=== PATIENT | male | born 1940 | race Caucasian/White ===

== ENCOUNTER 2019-01-01 14:56 | Emergency (ER) | payer OTHER, BC ==
[~2019-01-01] VITALS: Ht 172.7 cm; Wt 70.8 kg
[2019-01-01 15:04] VITALS: BP 122/38
--- NOTE | 2019-01-01 15:10 | NUR ---
BIB DAUGHTER C/O LEFT SIDE PAIN S/P FALL X TODAY. DENIES LOC, DENIES HITTING HEAD. PER DAUGHTER, PT HAS A SHUFFLING GAIT AND PT WAS TRYING TO OPEN THE DOOR CAUSING HIM TO FALL AND HITTING THE FRIDGE WITH THE PT/S L SIDE OF THE BODY. PERRLA, BRISK 3 MM. FULL CLEAR SPEECH. EQUAL PAT STRENGTH TO UPPER AND LOWER EXTREMITIES. PT PLACED ON FULL RESPIRATORY DIRECTOR. HOB UP. BED SIDE RAILS UP X1. ON LOW BED POSITION, LOCKED. ER MADE AWARE OF PT STATUS.
--- NOTE | 2019-01-01 15:25 | NUR ---
SEEN AND EXAMINED BY MERNA GUERRA WITH ORDERS AND CARRIED OUT.
[2019-01-01] MEDS ORDERED: HYDROcodone/APAP 5/325 MG 1 TAB TAB PO ONE (15:40)
[2019-01-01] MEDS ORDERED: ONDANSETRON 4 MG ODT PO ONE (15:40)
--- NOTE | 2019-01-01 15:50 | NUR ---
Blood for labwork drawn per PA ORDER . Patient tolerated well.
[2019-01-01 16:02] LABS: BASOPHILS % (AUTO) 0.5 % (0.0-2.0); EOSINOPHILS # (AUTO) 0.2 K/uL (0-0.4); HEMOGLOBIN 12.8 g/dL (12.0-18.0); LYMPHOCYTES # (AUTO) 1.9 K/uL (2.0-11.5); LYMPHOCYTES % (AUTO) 24.4 % (20.5-51.1); MEAN CORPUSCULAR HEMOGLOBIN 31 pg (27-31); MEAN CORPUSCULAR HGB CONC 34 g/dL (33-37); MEAN CORPUSCULAR VOLUME 92.8 fL (80-94); MONOCYTES # (AUTO) 0.6 K/uL (0.8-1.0); MONOCYTES % (AUTO) 8.2 % (1.7-9.3); NEUTROPHILS % (AUTO) 64.9 % (42.2-75.2); PLATELET COUNT (AUTO) 188 K/uL (140-450); RED BLOOD CELL COUNT(AUTO) 4.09 MIL/uL (4.20-6.10); RED CELL DISTRIBUTION WIDTH 13.6 % (11.6-13.7); WHITE BLOOD COUNT (AUTO) 7.7 K/uL (4.8-10.8)
[2019-01-01 16:12] LABS: ANION GAP 11.1 (8-16); CHLORIDE 105 mmol/L (98-107); GLUCOSE 93 mg/dL (74-106); POTASSIUM 4.1 mmol/L (3.5-5.1); SODIUM SERUM 140 mmol/L (136-145); UREA NITROGEN, BLOOD 17 mg/dL (7-18)
[2019-01-01 16:18] LABS: ALBUMIN 3.8 g/dL (3.4-5.0); ASPARTATE AMINOTRANSFERASE 21 U/L (15-37); TOTAL BILIRUBIN 0.5 mg/dL (0.0-1.0)
--- NOTE | 2019-01-01 16:40 | NUR ---
PT ABLE TO GIVE URINE SPECIMEN. URINE SAMPLE GIVEN TO PUBLIC RELATIONS ACCOUNT SUPERVISOR.
[2019-01-01 17:05] LABS: APPEARANCE,URINE CLEAR (CLEAR); BILIRUBIN,URINE NEGATIVE (NEGATIVE); BLOOD, URINE NEGATIVE (NEGATIVE); COLOR,URINE YELLOW (YELLOW); LEUKOCYTE ESTERASE ,URINE NEGATIVE (NEGATIVE); NITRITE, URINE NEGATIVE (NEGATIVE); UGLUCOSE NEGATIVE (NEGATIVE)
--- NOTE | 2019-01-01 17:31 | NUR ---
MERNA GUERRA AT BEDSIDE FOR PT RE EVALUATION
[2019-01-01 18:00] VITALS: BP 137/78
--- NOTE | 2019-01-01 18:00 | NUR ---
Patient discharged with v/s stable. Written and verbal after care instructions given and explained. Patient alert, oriented and verbalized understanding of instructions. Ambulatory with steady gait. All questions addressed prior to discharge. ID band removed. Patient advised to follow up with PMD. Rx of Azithromycin given. Patient educated on indication of medication including possible reaction and side effects. Opportunity to ask questions provided and answered.
== END 2019-01-01 18:00 | disposition home or self-care (01) ==
LOC: MED 14:56
DX: S20.212A Contusion of left front wall of thorax, initial encounter (principal); J18.9 Pneumonia, unspecified organism; G20 Parkinson's disease; F02.80 Dementia in other diseases classified elsewhere, unspecified severity, without behavioral disturbance, psychotic disturbance, mood disturbance, and anxiety; W18.39XA Other fall on same level, initial encounter; Y93.01 Activity, walking, marching and hiking; Y92.098 Other place in other non-institutional residence as the place of occurrence of the external cause; Y99.8 Other external cause status
CPT/HCPCS: 36415; 70450; 71250; 80053; 81003; 82550; 85025; 99284; Q0162

== ENCOUNTER 2019-01-22 10:08 | Emergency (ER) | payer OTHER, BC ==
[~2019-01-22] VITALS: Ht 172.7 cm; Wt 68.0 kg
[2019-01-22 10:10] VITALS: BP 139/64
--- NOTE | 2019-01-22 10:10 | NUR ---
PT [facility] WITH C/O ABDOMINAL PAIN X 2 WKS, WORSEN TODAY. DENIES PMH. PT AAO X4, GCS 15, ABLE TO SPEAK WITH SHORT SENTENCES DUE TO PAIN. RESPIRATIONS EVEN AND UNLABORED, BL LUNG CLEAR. SKIN WAMR/PINK/DRY, +PMSC. ABLE TO AMBULATED FROM GURNEY TO BED 02. ABDOMEN FLAT, FIRM, NON DISTENDED, ACTIVE BOWEL SOUND X4. STATED PAIN TO LLQ 10/10. PHP ENGINEER SR, BP WNL. AT BEDSIDE EVALUATING PT. WILL CONTINUE TO MONITOR
[2019-01-22] MEDS ORDERED: NACL 0.9% 1,000 ML IV ONE (10:26)
[2019-01-22] MEDS ORDERED: ONDANSETRON 4 MG/2 ML VIAL IVP ONE (10:30)
[2019-01-22] MEDS ORDERED: MORPHINE SULFATE 4 MG/ML SYR IVP ONE (10:30)
[2019-01-22 10:57] LABS: BASOPHILS # (AUTO) 0.1 K/uL (0.00-0.22); BASOPHILS % (AUTO) 0.7 % (0.0-2.0); EOSINOPHILS # (AUTO) 0.1 K/uL (0-0.4); EOSINOPHILS % (AUTO) 1.3 % (0.0-4.0); HEMATOCRIT 39.7 % (36-52); HEMOGLOBIN 13.5 g/dL (12.0-18.0); LYMPHOCYTES # (AUTO) 1.8 K/uL (2.0-11.5); MEAN CORPUSCULAR HEMOGLOBIN 32 pg (27-31); MEAN CORPUSCULAR HGB CONC 34 g/dL (33-37); MEAN CORPUSCULAR VOLUME 92.5 fL (80-94); MONOCYTES # (AUTO) 0.6 K/uL (0.8-1.0); MONOCYTES % (AUTO) 7.2 % (1.7-9.3); NEUTROPHILS # (AUTO) 5.5 K/uL (1.8-7.7); NEUTROPHILS % (AUTO) 68.8 % (42.2-75.2); PLATELET COUNT (AUTO) 243 K/uL (140-450); RED BLOOD CELL COUNT(AUTO) 4.29 MIL/uL (4.20-6.10); RED CELL DISTRIBUTION WIDTH 13.7 % (11.6-13.7)
[2019-01-22 10:59] LABS: APPEARANCE,URINE CLEAR (CLEAR); BILIRUBIN,URINE NEGATIVE (NEGATIVE); BLOOD, URINE NEGATIVE (NEGATIVE); COLOR,URINE YELLOW (YELLOW); LEUKOCYTE ESTERASE ,URINE NEGATIVE (NEGATIVE); NITRITE, URINE NEGATIVE (NEGATIVE); UGLUCOSE NEGATIVE (NEGATIVE)
[2019-01-22 11:07] LABS: ANION GAP 16.3 (8-16); CARBON DIOXIDE 24.2 mmol/L (21-32); CHLORIDE 105 mmol/L (98-107); CREATININE 0.9 mg/dL (0.7-1.3); GLUCOSE 105 mg/dL (74-106); POTASSIUM 4.5 mmol/L (3.5-5.1); SODIUM SERUM 141 mmol/L (136-145); UREA NITROGEN, BLOOD 17 mg/dL (7-18)
[2019-01-22 11:14] LABS: PROTHROMBIN TIME 9.8 secs (10.8-13.4)
[2019-01-22 11:17] LABS: RBC,URINE NONE SEEN /HPF (0-5); WBC,URINE 0-5 /HPF (0-5)
[2019-01-22 11:19] LABS: ALBUMIN 4.2 g/dL (3.4-5.0); ASPARTATE AMINOTRANSFERASE 26 U/L (15-37); LIPASE 101 U/L (73-393); TOTAL BILIRUBIN 0.6 mg/dL (0.0-1.0)
--- NOTE | 2019-01-22 11:46 | NUR ---
PT BACK FROM CT.
--- NOTE | 2019-01-22 13:12 | NUR ---
REPORT GIVEN TO LYNDA YATES AT [facility]
--- NOTE | 2019-01-22 13:36 | NUR ---
Patient discharged with v/s stable. Written and verbal after care instructions given and explained. Patient alert, oriented and verbalized understanding of instructions. Wheel Chair Assisted with to intermediate. All questions addressed prior to discharge. ID band removed. Patient advised to follow up with PMD. Rx of MIRALAX, BENTYL 20 MG given. Patient educated on indication of medication including possible reaction and side effects. Opportunity to ask questions provided and answered.
[2019-01-22 13:37] VITALS: BP 160/80
--- NOTE | 2019-01-26 13:08 | NUR ---
Late entry. Confirmed with RN that 1000 ml 0.9 NS IV completed at 1145.
== END 2019-01-22 13:36 | disposition home or self-care (01) ==
LOC: MED 10:08
DX: K59.00 Constipation, unspecified (principal); G20 Parkinson's disease; F02.80 Dementia in other diseases classified elsewhere, unspecified severity, without behavioral disturbance, psychotic disturbance, mood disturbance, and anxiety
CPT/HCPCS: 36415; 74177; 80053; 81001; 83690; 85025; 85610; 85730; 86886; 86900; 86901; 96374; 96375; 99284; J2270; J2405; J7030; Q9967

== ENCOUNTER 2019-04-06 08:57 | Inpatient (IN) | payer OTHER ==
[~2019-04-06] VITALS: Ht 172.7 cm; Wt 78.0 kg
[2019-04-06 09:01] VITALS: BP 107/80
--- NOTE | 2019-04-06 09:17 | NUR ---
C/O LT FLANK PAIN X1 DAY. NON RADIATING CONSTANT DULL PAIN AT 10/10 THAT INCREASES W/ SNEEZING OR COUGHING. - N/V/D OR DYSURIA. PATIENT STATES PAIN STARTED SUDDENLY YESTERDAY. DOES REPORT A RECENT FALL, ABRASION TO PTS L KNEE. DENIES LOC, HEAD OR NECK PAIN. BED IS DOWN, LOCKED, BED RAIL X 1, ERMD TO SEE PT. MEDHX:DEMENTIA, PARKINSON, HTN RX:ALRAZOLAM, AMLODIPINE, CARBIDOPA/LEVADOPA
--- NOTE | 2019-04-06 09:17 | NUR ---
DR ALAS AT BEDSIDE
--- NOTE | 2019-04-06 09:18 | NUR ---
PT USES WHEELCHAIR- BASELINE
--- NOTE | 2019-04-06 09:20 | NUR ---
20 GAUGE INSERTED INTO PTS L AC, LABS DRAWN BEDSIDE.
[2019-04-06] MEDS ORDERED: NACL 0.9% 1,000 ML IV ONE ×2 (09:21→11:00)
[2019-04-06] MEDS ORDERED: MORPHINE SULFATE 4 MG/ML SYR IVP ONE (09:25)
[2019-04-06] MEDS ORDERED: ONDANSETRON 4 MG/2 ML VIAL IVP ONE (09:25)
--- NOTE | 2019-04-06 09:43 | NUR ---
[facility]
--- NOTE | 2019-04-06 09:44 | NUR ---
PT UNABLE TO GIVE URINE AT THIS TIME
[2019-04-06 09:56] LABS: BASOPHILS % (AUTO) 0.8 % (0.0-2.0); EOSINOPHILS # (AUTO) 0.1 K/uL (0-0.4); EOSINOPHILS % (AUTO) 2.1 % (0.0-4.0); HEMATOCRIT 38.3 % (36-52); HEMOGLOBIN 12.8 g/dL (12.0-18.0); LYMPHOCYTES # (AUTO) 1.3 K/uL (2.0-11.5); LYMPHOCYTES % (AUTO) 20.6 % (20.5-51.1); MEAN CORPUSCULAR HEMOGLOBIN 31 pg (27-31); MEAN CORPUSCULAR HGB CONC 33 g/dL (33-37); MEAN CORPUSCULAR VOLUME 92.4 fL (80-94); MONOCYTES # (AUTO) 0.6 K/uL (0.8-1.0); MONOCYTES % (AUTO) 8.9 % (1.7-9.3); NEUTROPHILS # (AUTO) 4.4 K/uL (1.8-7.7); NEUTROPHILS % (AUTO) 67.6 % (42.2-75.2); PLATELET COUNT (AUTO) 201 K/uL (140-450); RED BLOOD CELL COUNT(AUTO) 4.14 MIL/uL (4.20-6.10); RED CELL DISTRIBUTION WIDTH 13.8 % (11.6-13.7); WHITE BLOOD COUNT (AUTO) 6.5 K/uL (4.8-10.8)
[2019-04-06 10:03] LABS: CHLORIDE 106 mmol/L (98-107); GLUCOSE 86 mg/dL (74-106); SODIUM SERUM 141 mmol/L (136-145); UREA NITROGEN, BLOOD 19 mg/dL (7-18)
[2019-04-06 10:09] LABS: ALBUMIN 3.7 g/dL (3.4-5.0); ASPARTATE AMINOTRANSFERASE 24 U/L (15-37); LIPASE 505 U/L (73-393); TOTAL BILIRUBIN 0.6 mg/dL (0.0-1.0)
--- NOTE | 2019-04-06 10:13 | NUR ---
PT REFUSING STRAIGHT CATH AT THIS TIME. DR ALAS NOTIFIED
[2019-04-06] MEDS ORDERED: DIAZEPAM 5 MG TAB PO ONE (10:15)
[2019-04-06] MEDS ORDERED: KETOROLAC 30 MG/ML VIAL IVP ONE (10:15)
--- NOTE | 2019-04-06 10:26 | NUR ---
PT C/O 03/28 PAIN. VALIUM AND TORADOL ADMINISTERED PER DR LOVELL
--- NOTE | 2019-04-06 11:26 | NUR ---
PT AGREED TO STRAIGHT CATH. # 14 FR Urinary catheter inserted utilizing sterile technique. Immediate return of 200 ml YELLOW urine noted. Urine sample collected and sent to lab. Pt tolerated procedure WELL.
--- NOTE | 2019-04-06 11:41 | NUR ---
PT RESTING WITH DAUGHTER BEDSIDE. VSS AT THIS TIME. PAIN 5/10
[2019-04-06 11:43] LABS: APPEARANCE,URINE CLEAR (CLEAR); BILIRUBIN,URINE NEGATIVE (NEGATIVE); BLOOD, URINE NEGATIVE (NEGATIVE); COLOR,URINE YELLOW (YELLOW); LEUKOCYTE ESTERASE ,URINE NEGATIVE (NEGATIVE); NITRITE, URINE NEGATIVE (NEGATIVE); UGLUCOSE NEGATIVE (NEGATIVE)
--- NOTE | 2019-04-06 11:45 | NUR ---
Dr. Patino re-evaluating patient at bedside.
[2019-04-06] MEDS ORDERED: NACL 0.9% 1,000 ML IV SCH (11:56)
[2019-04-06] MEDS ORDERED: HYDROcodone/APAP 5/325 MG 1 TAB TAB PO PRN (12:00)
[2019-04-06] MEDS ORDERED: ACETAMINOPHEN 325 MG TAB PO PRN (12:00)
[2019-04-06] MEDS ORDERED: MORPHINE SULFATE 2 MG/ML SYR IVP PRN (12:00)
[2019-04-06] MEDS ORDERED: DOCUSATE SODIUM 100 MG GELCAP PO PRN (12:00)
[2019-04-06] MEDS ORDERED: ONDANSETRON 4 MG/2 ML VIAL IM/IVP PRN (12:00)
--- NOTE | 2019-04-06 12:18 | NUR ---
clock repair technician at bedside.
[2019-04-06] MEDS ORDERED: LACT10SO1 PO (12:19)
[2019-04-06] MEDS ORDERED: SENN-72 PO (12:19)
[2019-04-06] MEDS ORDERED: AMLO10TA4 PO (12:19)
[2019-04-06] MEDS ORDERED: BISA5ECT43 RC (12:19)
[2019-04-06] MEDS ORDERED: CARB1TER4 PO (12:19)
[2019-04-06] MEDS ORDERED: PRAM0.5T4 PO (12:19)
[2019-04-06] MEDS ORDERED: ACET-8983 PO (12:19)
[2019-04-06] MEDS ORDERED: MELA5TAB6 PO (12:19)
[2019-04-06] MEDS ORDERED: ACET1TAB93 PO (12:19)
[2019-04-06] MEDS ORDERED: CHLO480L1 PO (12:19)
[2019-04-06] MEDS ORDERED: ALPR0.5T2 PO (12:19)
--- NOTE | 2019-04-06 12:35 | NUR ---
Patient will be admitted to care of [facility]. Admited to TELE. Will go to room 125B. Belongings list completed. Report to NOAH CHAUDHARI.
--- NOTE | 2019-04-06 12:36 | NUR ---
Pt admitted from ER to room 125B via [facility]. Received report from ER nurse Susan. Pt able to transfer from gurney to wheelchair, then wheelchair to bed with min assist. Pt gait weak & unsteady. Pt aaox3, verbally responsive, respirations even & nonlabored in room air. Daughter Mihaela with pt. Medical hx obtained from daughter & pt. Left AC IV intact & patent, initiated IVF NS @ 110ml/hr. Pt oriented to room & unit, verbalized understanding. Able to return demonstrate proper use of urinal & call light. Assisted pt to change into yellow gown & socks, yellow arm band applied, & yellow sign posted by door. Daughter Mihaela states she has to leave for work & will be taking home pt's wheelchair.
[2019-04-06] MEDS ORDERED: MEDICATION REC. PHARMACY CONS. 1 EA MISC MC PRN (12:40)
[2019-04-06 13:00] VITALS: BP 132/84
[2019-04-06] MEDS ORDERED: MELATONIN 3 MG TAB PO PRN (13:10)
[2019-04-06] MEDS ORDERED: ALPRAZolam 0.5 MG TAB PO PRN (13:10)
[2019-04-06] MEDS ORDERED: ACETAMINOPHEN/CODEINE 300/30MG 1 TAB PO PRN (13:10)
[2019-04-06] MEDS ORDERED: BISACODYL 10 MG SUPP RC PRN (13:10)
[2019-04-06 13:26] LABS: PROTHROMBIN TIME 10.2 secs (10.8-13.4)
[2019-04-06] MEDS ORDERED: KETOROLAC 15 MG/ML VIAL IVP PRN (13:35)
[2019-04-06 13:36] LABS: MAGNESIUM 2.2 mg/dL (1.8-2.4); PHOSPHORUS 3.2 mg/dL (2.5-4.9); THYROID STIMULATING HORMONE 1.77 uIU/mL (0.34-3.74)
--- NOTE | 2019-04-06 14:47 | NUR ---
PT SLEEPING IS LEFT AT BEDSIDE WILL ENDORSE TO PRODUCT CRAFTSMAN
[2019-04-06 16:00] VITALS: BP 126/68
[2019-04-06] MEDS: CARBIDOPA/LEVODOPA 25/100 MG 1 TAB PO SCH (17:29)
[2019-04-06] MEDS: PRAMIPEXOLE 0.5 MG TAB PO SCH (17:30)
[2019-04-06] MEDS: NACL 0.9% 1,000 ML IV SCH (18:22)
--- NOTE | 2019-04-06 19:25 | NUR ---
Pt endorsed to night nurse FRAA Ford. Pt laying in bed. No signs of acute stress at this time. IV to L AC Addendum: 04/06/19 at 1935 by Roxana Linares RN IV 20 g NS at 150 ml/hr. Urinal at bedside. Pt stated "I want to go to sleep."
--- NOTE | 2019-04-06 19:26 | NUR ---
RECEIVED PT SLEEPING, EASILY AROUSABLE TO NAME, VITAL SIGNS STABLE, DENIES ABDOMINAL PAIN BUT COMPLAINING OF RT SHOULDER PAIN, WILL MEDICATE PRN, MAINTAIN ON NPO EXCEPT MEDS, IVF INFUSING WELL, SAFETY MEASURES IN PLACE, SIDE RAILS UP AND BED ALARM ON, CALL LIGHT WITHIN REACH.
[2019-04-06 20:00] VITALS: BP 119/59
--- NOTE | 2019-04-06 20:17 | NUR ---
INSTRUCTED PATIENT ON INCENTIVE SPIROMETER. PATIENT DID 1500 CC X 10 BREATHS
[2019-04-06] MEDS: PIPERACILLIN/TAZOBACTAM 3.375 GM in DEXTROSE 5% 50 ML IV SCH (20:28)
--- NOTE | 2019-04-06 20:50 | NUR ---
DUE IV ANTIBIOTIC ADMINISTERED, PT PREFER TO STAND WHEN VOIDING USING THE URINAL, ASSISTED TO STAND AND VOIDED FREELY WITH CLEAR YELLOW URINE, ASSISTED BACK TO BED, ALL NEEDS ATTENDED.
[2019-04-07] VITALS: BP 131/78
--- NOTE | 2019-04-07 | NUR ---
PT SLEEPING, EASILY AROUSABLE TO TOUCH, VITAL SIGNS STABLE, NO SIGNS OF PAIN, IVF INFUSING WELL, CONTINUE TO MONITOR CLOSELY.
[2019-04-07] MEDS: NACL 0.9% 1,000 ML IV SCH ×4 (01:30→22:10)
--- NOTE | 2019-04-07 03:40 | NUR ---
PT SLEEPING, EASILY AROUSABLE, VITAL SIGNS STABLE, SB ON TELE, ASYMPTOMATIC, DENIES PAIN OR SOB, IVF INFUSING WELL, MONITORED CLOSELY.
[2019-04-07 04:00] VITALS: BP 136/81
[2019-04-07] MEDS: PIPERACILLIN/TAZOBACTAM 3.375 GM in DEXTROSE 5% 50 ML IV SCH ×3 (04:58→20:07)
[2019-04-07 06:11] LABS: T4 (THYROXINE) 5.4 ug/dL (4.5-12.0)
[2019-04-07 06:48] LABS: ANION GAP 13.3 (8-16); CHLORIDE 107 mmol/L (98-107); CREATININE 0.9 mg/dL (0.7-1.3); GLUCOSE 99 mg/dL (74-106); POTASSIUM 4.3 mmol/L (3.5-5.1); SODIUM SERUM 141 mmol/L (136-145); UREA NITROGEN, BLOOD 16 mg/dL (7-18)
[2019-04-07 06:54] LABS: MAGNESIUM 2.1 mg/dL (1.8-2.4); PHOSPHORUS 3.5 mg/dL (2.5-4.9)
[2019-04-07 06:55] LABS: CHOL/HDL RATIO 3.6 (1-4.5)
[2019-04-07 07:04] LABS: BASOPHILS % (AUTO) 0.5 % (0.0-2.0); EOSINOPHILS # (AUTO) 0.2 K/uL (0-0.4); EOSINOPHILS % (AUTO) 3.1 % (0.0-4.0); HEMATOCRIT 38.8 % (36-52); HEMOGLOBIN 13.1 g/dL (12.0-18.0); LYMPHOCYTES # (AUTO) 1.6 K/uL (2.0-11.5); LYMPHOCYTES % (AUTO) 21.5 % (20.5-51.1); MEAN CORPUSCULAR HEMOGLOBIN 31 pg (27-31); MEAN CORPUSCULAR HGB CONC 34 g/dL (33-37); MEAN CORPUSCULAR VOLUME 92.5 fL (80-94); MONOCYTES # (AUTO) 0.5 K/uL (0.8-1.0); MONOCYTES % (AUTO) 6.7 % (1.7-9.3); NEUTROPHILS # (AUTO) 5.1 K/uL (1.8-7.7); NEUTROPHILS % (AUTO) 68.2 % (42.2-75.2); PLATELET COUNT (AUTO) 188 K/uL (140-450); RED BLOOD CELL COUNT(AUTO) 4.19 MIL/uL (4.20-6.10); RED CELL DISTRIBUTION WIDTH 13.7 % (11.6-13.7); WHITE BLOOD COUNT (AUTO) 7.4 K/uL (4.8-10.8)
--- NOTE | 2019-04-07 07:15 | NUR ---
RECEIVED REPORT FROM SALES & SERVICE ASSOCIATE NURSE. PATIENT IS AWAKE AND RESTING IN BED. CHANGE OF SHIFT REPORT WAS GIVEN AT BEDSIDE WITH THE PATIENTS CONTRIBUTION. NO COMPLAINTS FROM PATIENT AT THIS TIME. PATIENT IS ON ROOM AIR, A&O X2-3. WILL CONTINUE TO MONITOR.
--- NOTE | 2019-04-07 07:18 | NUR ---
PT AWAKE, NO SIGNS OF DISTRESS, BEDSIDE REPORT GIVEN TO FARA BURNS FOR CONTINUITY OF CARE.
[2019-04-07 08:00] VITALS: BP 115/70
[2019-04-07] MEDS: CARBIDOPA/LEVODOPA 25/100 MG 1 TAB PO SCH ×3 (08:10→17:19)
[2019-04-07] MEDS: SENNA 8.6 MG TAB PO SCH (08:10)
[2019-04-07] MEDS: amLODIPine 5 MG TAB PO SCH (08:10)
[2019-04-07] MEDS: LACTULOSE 20 GM/30 ML UDC PO SCH (08:11)
[2019-04-07] MEDS: PRAMIPEXOLE 0.5 MG TAB PO SCH ×3 (08:14→17:21)
--- NOTE | 2019-04-07 08:17 | NUR ---
PATIENT HAS BEEN SCREENED AND CATEGORIZED MODERATE NUTRITION RISK. PATIENT WILL BE SEEN WITHIN 3-5 DAYS OF ADMISSION. 04/08/19[address]EN[address]
--- NOTE | 2019-04-07 09:00 | NUR ---
ADMISTERED MORNING MEDICATION TO PATIENT. PATIENT IS SITTING UP IN BED AND TOLERATED WELL.
--- NOTE | 2019-04-07 09:48 | NUR ---
* S.T. BEDSIDE SWALLOW EVAL COMPLETED * Pt presents w/ moderate pharyngeal phase dysphagia c/b consistent delayed coughing after swallows of thin liquids w/ straw. Pt reported that he has long hx of coughing after swallowing, but was unconcerned because "everyone I know does." Recommend: 1) Downgrade diet texture to NECTAR THICK clear liquid diet, including water at bedside. 2) P.O. meds as tolerated 3) Advance to mechanical soft ground w/ nectar thick liquids once cleared by GI No further tx indicated at this time. DC to [facility] care. Endorsed to [facility] staff. Time [phone]
--- NOTE | 2019-04-07 11:00 | NUR ---
PATIENT AMBULATED X2 SEPARATE TIMES TO RESTROOM WITH MAXIMUM STANDBY ASSIST. PATIENT STATED TO HAVING A SMALL BM. PATIENT TOLERATED WELL, NO DIZZINESS. PATIENT IS CURRENTLY BACK IN BED, SITTING UP, WATCHING TV. WILL CONTINUE TO MONITOR.
[2019-04-07 12:00] VITALS: BP 127/67
--- NOTE | 2019-04-07 13:00 | NUR ---
PATIENT IS RESTING IN BED. NO SIGNS OF DISTRESS
--- NOTE | 2019-04-07 15:20 | NUR ---
PATIENT WAS ASSISTED IN USING BEDPAN. PATIENT WAS UNSTEADY ON FEET THE PAST 2X AMBULATING TO RESTROOM, SO BEDPAN WAS USED. NO FURTHER COMPLAINTS
[2019-04-07 16:00] VITALS: BP 147/74
--- NOTE | 2019-04-07 17:30 | NUR ---
ADMINISTERED TORADOL FOR PAIN 11/26. PATIENTS VITALS WNL PRIOR TO ADMINISTRATION. WILL RE ASSESS PAIN. NO FURTHER COMPLAINTS
--- NOTE | 2019-04-07 19:10 | NUR ---
ENDORSED PATIENT TO PRIMARY SPECIAL EDUCATOR NURSE LUZ
--- NOTE | 2019-04-07 19:15 | NUR ---
RECEIVED PT AWAKE WATCHING TV, AAOX3, ABLE TO MAKE NEEDS KNOWN, VITAL SIGNS STABLE, DENIES ANY PAIN, IVF INFUSING WELL, PLAN OF CARE DISCUSSED, SAFETY MEASURES IN PLACE, CALL LIGHT WITHIN REACH.
[2019-04-07 20:00] VITALS: BP 115/52
--- NOTE | 2019-04-07 20:20 | NUR ---
DUE IV ANTIBIOTIC ADMINISTERED, MEDICATED WITH MELATONIN FOR SLEEP PER REQUEST, ALL NEEDS ATTENDED.
--- NOTE | 2019-04-07 21:45 | NUR ---
PT ASSISTED TO STAND AND USE URINAL, VOIDED FREELY WITH CLEAR YELLOW URINE, ASSISTED BACK TO BED, BED ALARM ON.
[2019-04-08] VITALS: BP 149/68
--- NOTE | 2019-04-08 | NUR ---
PT SLEEPING, EASILY AROUSABLE, VITAL SIGNS STABLE, DENIES PAIN, IVF INFUSING WELL, CONTINUE TO MONITOR CLOSELY.
--- NOTE | 2019-04-08 02:53 | NUR ---
RECIEVED PT AAOX4 NID ,IVSITE INTACT AND PATENT , NO C/O PAIN - BED ALARM ON.
[2019-04-08 04:00] VITALS: BP 140/60
[2019-04-08] MEDS: NACL 0.9% 1,000 ML IV SCH ×3 (04:25→21:02)
[2019-04-08] MEDS: PIPERACILLIN/TAZOBACTAM 3.375 GM in DEXTROSE 5% 50 ML IV SCH ×3 (04:48→20:56)
--- NOTE | 2019-04-08 06:00 | NUR ---
MADE ROUNDS , NO COMPLAIN MADE
[2019-04-08 06:37] LABS: PHOSPHORUS 3.1 mg/dL (2.5-4.9)
--- NOTE | 2019-04-08 07:10 | NUR ---
RECEIVED REPORT FROM ELECTROMECHANICAL INSPECTOR NURSE. PATIENT IS SLEEPING IN BED. NO SIGNS OF RESP DISTRESS. PATIENT IS ON ROOM AIR. A&O X3-4. IV TO L AC 20G AND L FA 22G. WILL CONTINUE TO MONITOR
--- NOTE | 2019-04-08 07:10 | NUR ---
ENDORSED TO AM SHIFT FOR CONT. OF CARE. Addendum: 04/08/19 at 0754 by Fabi Garcia RN ON THICKENED HONEY LIQ DIET - ENDORSED.
[2019-04-08 07:56] LABS: BASOPHILS % (AUTO) 0.6 % (0.0-2.0); EOSINOPHILS # (AUTO) 0.2 K/uL (0-0.4); EOSINOPHILS % (AUTO) 3.5 % (0.0-4.0); HEMATOCRIT 38.1 % (36-52); HEMOGLOBIN 12.9 g/dL (12.0-18.0); LYMPHOCYTES # (AUTO) 1.5 K/uL (2.0-11.5); LYMPHOCYTES % (AUTO) 23.9 % (20.5-51.1); MEAN CORPUSCULAR HEMOGLOBIN 31 pg (27-31); MEAN CORPUSCULAR HGB CONC 34 g/dL (33-37); MEAN CORPUSCULAR VOLUME 92.5 fL (80-94); MONOCYTES # (AUTO) 0.5 K/uL (0.8-1.0); MONOCYTES % (AUTO) 7.4 % (1.7-9.3); NEUTROPHILS % (AUTO) 64.6 % (42.2-75.2); PLATELET COUNT (AUTO) 194 K/uL (140-450); RED BLOOD CELL COUNT(AUTO) 4.12 MIL/uL (4.20-6.10); RED CELL DISTRIBUTION WIDTH 13.7 % (11.6-13.7); WHITE BLOOD COUNT (AUTO) 6.1 K/uL (4.8-10.8)
[2019-04-08 08:00] VITALS: BP 160/78
[2019-04-08 08:24] LABS: ANION GAP 15.9 (8-16); CHLORIDE 108 mmol/L (98-107); CREATININE 0.9 mg/dL (0.7-1.3); GLUCOSE 100 mg/dL (74-106); POTASSIUM 3.9 mmol/L (3.5-5.1); SODIUM SERUM 143 mmol/L (136-145); UREA NITROGEN, BLOOD 10 mg/dL (7-18)
[2019-04-08] MEDS: LACTULOSE 20 GM/30 ML UDC PO SCH (09:00)
[2019-04-08] MEDS: SENNA 8.6 MG TAB PO SCH (09:03)
[2019-04-08] MEDS: amLODIPine 5 MG TAB PO SCH (09:03)
[2019-04-08] MEDS: CARBIDOPA/LEVODOPA 25/100 MG 1 TAB PO SCH ×3 (09:03→16:19)
[2019-04-08] MEDS: PRAMIPEXOLE 0.5 MG TAB PO SCH ×3 (09:03→16:19)
--- NOTE | 2019-04-08 09:05 | NUR ---
ADMINISTERED MORNING MEDICATION TO PATIENT. PATIENT TOLERATED PO WELL. NO RESP DISTRESS. PATIENT REFUSED LACTULOSE.
--- NOTE | 2019-04-08 11:30 | NUR ---
PATIENT IS SITTING UP IN BED WATCHING TV. NO SIGNS OF RESPIRATORY DISTRESS.
[2019-04-08 12:00] VITALS: BP 140/74
--- NOTE | 2019-04-08 13:30 | NUR ---
PATIENT IS RESTING QUIETLY IN BED. NO COMPLAINTS AT THIS TIME, NO RESP DISTRESS.
[2019-04-08 16:00] VITALS: BP 117/54
--- NOTE | 2019-04-08 16:35 | NUR ---
PATIENT HAS DAUGHTER AT BEDSIDE. ADMINISTERED AFTERNOON MEDICATION. DR LUNA CAME IN AND DISCUSSED PATIENTS PLAN OF CARE WITH PATIENT AND DAUGHTER.
--- NOTE | 2019-04-08 19:00 | NUR ---
GAVE BEDSIDE REPORT TO FARA YANG. PATIENT IS SITTING UP IN BED AWAKE AND ON ROOM AIR.
--- NOTE | 2019-04-08 19:30 | NUR ---
RECEIVED BEDSIDE REPORT FROM DAY RN. PT IS AAOX3 ON ROOM AIR. RESPIRATIONS ARE EQUAL AND UNLABORED. PT SKIN IS INTACT. IV ON LAC 20G SL AND L FA 22G IVF INFUSING PER ORDERS. PT WITH UNSTEADY GAIT D/T TO SHUFFLING BED ALARM ON AND CALL LIGHT IS WITHIN REACH. PLAN OF CARE DISCUSSED WITH PT. WILL ROUND FREQUENTLY.
[2019-04-08 20:00] VITALS: BP 135/74
--- NOTE | 2019-04-08 20:56 | NUR ---
TONIA MEDICATIONS GIVEN. PT TOLERATED WELL. ALL NEEDS MET AT THIS TIME. CALL LIGHT IS WITHIN REACH. WILL CONTINUE TO MONITOR.
[2019-04-08] MEDS ORDERED: ATORVASTATIN 20 MG TAB PO SCH (21:00)
--- NOTE | 2019-04-08 22:04 | NUR ---
ADMINISTERED NORCO FOR FLANK PAIN 01/26. SAFETY MEASURES ARE IN PLACE. WILL CONTINUE TO MONITOR.
--- NOTE | 2019-04-08 23:20 | NUR ---
PT IS SLEEPING COMFORTABLY IN BED . CHEST RISE AND FALL. NO S/S OF DISTRESS. WILL CONTINUE TO MONITOR.
[2019-04-09] VITALS: BP 141/79
--- NOTE | 2019-04-09 | NUR ---
VITAL SIGNS ARE WITHIN NORMAL LIMITS. ALL NEEDS MET AT THIS TIME. WILL CONTINUE TO MONITOR.
--- NOTE | 2019-04-09 02:20 | NUR ---
PATIENT IS RESTING COMFORTABLY IN BED. NO S/S OF DISTRESS. CALL LIGHT IS WITHIN REACH.
[2019-04-09 04:00] VITALS: BP 152/84
--- NOTE | 2019-04-09 04:00 | NUR ---
VITAL SIGNS ARE WITHIN NORMAL LIMITS. ALL NEEDS MET AT THIS TIME. WILL CONTINUE TO MONITOR.
[2019-04-09] MEDS: PIPERACILLIN/TAZOBACTAM 3.375 GM in DEXTROSE 5% 50 ML IV SCH (04:21)
--- NOTE | 2019-04-09 06:00 | NUR ---
SAT PT ON CHAIR AND CLEANED BED LINEN. PT REPOSITION FOR COMFORT. ALL NEEDS MET AT THIS TIME.
--- NOTE | 2019-04-09 07:15 | NUR ---
RECEIVED REPORT FROM TOW BAR DRIVER NURSE. PATIENT IS LAYING IN BED ON ROOM AIR. NO SIGNS OF RESP DISTRESS
--- NOTE | 2019-04-09 07:15 | NUR ---
ENDORSED PT TO DAY RN. PT IN STABLE CONDITION.
[2019-04-09 08:00] VITALS: BP 160/84
[2019-04-09] MEDS: CARBIDOPA/LEVODOPA 25/100 MG 1 TAB PO SCH (08:11)
[2019-04-09] MEDS: amLODIPine 5 MG TAB PO SCH (08:11)
[2019-04-09] MEDS: SENNA 8.6 MG TAB PO SCH (08:11)
[2019-04-09] MEDS: PRAMIPEXOLE 0.5 MG TAB PO SCH (08:12)
[2019-04-09] MEDS: LACTULOSE 20 GM/30 ML UDC PO SCH (08:18)
--- NOTE | 2019-04-09 09:15 | NUR ---
ADMINISTERED MORNING MEDICATION. PATIENT TOLERATED WELL
[2019-04-09] MEDS ORDERED: LACT1.4C PO (09:37)
[2019-04-09] MEDS ORDERED: AMOX-999 PO (09:37)
[2019-04-09 12:00] VITALS: BP 149/72
--- NOTE | 2019-04-09 12:00 | NUR ---
SPOKE TO JOHN AT [facility]. SET UP TRANSPORTATION FOR PATIENT. INFORMED PATIENTS DAUGHTER OF TRANSPORTATION TIME AND RESP THER.
--- NOTE | 2019-04-09 12:30 | NUR ---
REMOVED PATIENTS IV'S, REMOVED PATIENT FROM TELE BOX. ASSISTED PATIENT IN CHANGING INTO CLOTHING AND GATHERING BELONGINGS.
--- NOTE | 2019-04-09 13:00 | NUR ---
WHEELED PATIENT IN WHEELCHAIR TO THE FRONT OF THE LOBBY WHERE HE WAS PICKED UP BY TRANSPORTATION POLYMER SPECIALIST OF [facility]. PATIENTS ID BAND AND FALL RISK BAND WAS REMOVED FROM WRIST.
== END 2019-04-09 12:55 | DRG 177 ==
LOC: MED 08:57 → MMU 11:56
PROVIDERS: ADMIT General Practice; ATTEND General Practice
DX: J69.0 Pneumonitis due to inhalation of food and vomit (principal); K85.90 Acute pancreatitis without necrosis or infection, unspecified; N28.1 Cyst of kidney, acquired; G20 Parkinson's disease; F02.80 Dementia in other diseases classified elsewhere, unspecified severity, without behavioral disturbance, psychotic disturbance, mood disturbance, and anxiety; I10 Essential (primary) hypertension; G47.00 Insomnia, unspecified; F41.9 Anxiety disorder, unspecified; K59.00 Constipation, unspecified; E87.8 Other disorders of electrolyte and fluid balance, not elsewhere classified; E78.1 Pure hyperglyceridemia; E83.51 Hypocalcemia; Z87.891 Personal history of nicotine dependence
CPT/HCPCS: 36415; 71045; 80048; 80053; 81003; 82150; 83036; 83690; 83735; 83880; 84100; 84436; 84443; 85025; 85610; 85730; 87081; 87205; 92610; 96361; 96374; 96375; 97110; 97116; 97161-GP; 97530; 99285; C1758; J1644; J1885; J2270; J2405; J2543; J7030; J7060; Q0092

== ENCOUNTER 2019-04-18 18:57 | Emergency (ER) | payer OTHER ==
[~2019-04-18] VITALS: Ht 172.7 cm; Wt 72.6 kg
[2019-04-18 18:57] VITALS: BP 138/37
[~2019-04-18 18:57] MED LIST: ACET-8983 PO; ACET1TAB93 PO; ALPR0.5T2 PO; AMLO10TA4 PO; AMOX-999 PO; BISA5ECT43 RC; CARB1TER4 PO; CHLO480L1 PO; LACT1.4C PO; LACT10SO1 PO; MELA5TAB6 PO; PRAM0.5T4 PO; SENN-72 PO
--- NOTE | 2019-04-18 19:00 | NUR ---
PT BIBA TO BED 11.
--- NOTE | 2019-04-18 19:15 | NUR ---
79 YO M ADAM FROM [facility] S/P FALL IN BEDROOM ON CARPETED FLOOR. PER EMS, PT WAS C/O BILATERAL WRIST PAIN ON SCENE. PER FACILITY, PT HAS HAD 2 FALLS WITHIN THE LAST 30 MINUTES. EMS REPORTS NO LOC OR HITTING OF HEAD. -- PT AWAKE, A/O TO PERSON. PT STATES HE FELL BUT CANNOT REMEMBER WHEN OR HOW. PT CANNOT RECALL DATE; STATES THAT IT IS JANUARY. CANNOT RECALL ADDRESS; STATES HE LIVES "[place] [address]". PT HAS HX OF DEMENTIA. PER EMS, THIS IS BASELINE BEHAVIOR. -- PT DENIES ANY PAIN AT THIS TIME. FULL ROM NOTED TO BILATERAL WRISTS WITHOUT C/O PAIN. -- SKIN PINK, WARM, DRY. BREATHING EVEN, UNLABORED. NO GROSS TRAUMA OR INJURY NOTED. PMH-- PARKINSON'S, HTN, FALLS, A. FIB, DEMENTIA
--- NOTE | 2019-04-18 19:48 | NUR ---
XRAY AT BEDSIDE.
--- NOTE | 2019-04-18 19:59 | NUR ---
PT IS REFUSING XRAY. DR. SMITH NOTIFIED.
--- NOTE | 2019-04-18 20:25 | NUR ---
DAUGHTER IS AT BEDSIDE. DAUGHTER STATES SHE WILL TAKE PT HOME.
[2019-04-18 20:36] VITALS: BP 130/45
--- NOTE | 2019-04-18 20:36 | NUR ---
Patient discharged with v/s stable. Written and verbal after care instructions given and explained. Patient verbalized understanding. Ambulatory with steady gait with daughter-assistance. All questions addressed prior to discharge. Advised to follow up with PMD.
== END 2019-04-18 20:36 | disposition home or self-care (01) ==
LOC: MED 18:57
DX: M25.531 Pain in right wrist (principal); M25.532 Pain in left wrist; I10 Essential (primary) hypertension; G20 Parkinson's disease; F02.80 Dementia in other diseases classified elsewhere, unspecified severity, without behavioral disturbance, psychotic disturbance, mood disturbance, and anxiety; I48.91 Unspecified atrial fibrillation; Z79.2 Long term (current) use of antibiotics; Z79.899 Other long term (current) drug therapy; Z79.1 Long term (current) use of non-steroidal anti-inflammatories (NSAID); W18.39XA Other fall on same level, initial encounter; Y93.89 Activity, other specified; Y92.89 Other specified places as the place of occurrence of the external cause; Y99.8 Other external cause status
CPT/HCPCS: 99283

== ENCOUNTER 2019-05-30 03:53 | Emergency (ER) | payer OTHER, BC ==
[~2019-05-30] VITALS: Ht 172.7 cm; Wt 79.4 kg
[~2019-05-30 03:53] MED LIST changes: +BISA-188 RC; -BISA5ECT43 RC
[2019-05-30 04:01] VITALS: BP 151/80
[2019-05-30 04:32] VITALS: BP 151/80
== END 2019-05-30 04:33 | disposition home or self-care (01) ==
LOC: MED 03:53
DX: R40.4 Transient alteration of awareness (principal); G20 Parkinson's disease; F02.80 Dementia in other diseases classified elsewhere, unspecified severity, without behavioral disturbance, psychotic disturbance, mood disturbance, and anxiety; I10 Essential (primary) hypertension; F41.9 Anxiety disorder, unspecified; Z79.899 Other long term (current) drug therapy
CPT/HCPCS: 99281

== ENCOUNTER 2019-10-28 20:32 | Emergency (ER) | payer BC, OTHER ==
[~2019-10-28] VITALS: Ht 162.6 cm; Wt 67.1 kg
[2019-10-28 20:37] VITALS: BP 129/68
--- NOTE | 2019-10-28 20:53 | NUR ---
PT BIBA TO BED 03.
--- NOTE | 2019-10-28 20:54 | NUR ---
BROUGHT IN BY EMS FROM [facility] WHILE DRYING HIS FEET SEATED ON A BENCH IN BATHROOM, TIPPED OVER HIT HIS HEAD SKIN TEAR TO FRONTAL LOBE WITH SMALL HEMATOMA, DENIES KO ALSO C/O PAIN TO LEFT 1ST DIGIT--NO DEFORMITY NOTED
--- NOTE | 2019-10-28 21:01 | NUR ---
PT TRANSFERRED TO BED 3. PT HAS A HALF DOLLAR SIZE SKIN TEAR TO HIS FOREHEAD. PT STATES PAIN IS 8/10 IN HIS HEAD. HE ALSO COMPLAINS OF PAIN IN HIS LEFT THUMB AND KNEE. WOUND IS COVERED WITH GAUZE AND IS SUPERFICIAL. NO ACTIVE BLEEDING AT THIS TIME. PT IS A/O X4, EQUAL STRENGTH BILAT AND EYES ARE PERRLA.
--- NOTE | 2019-10-28 21:01 | NUR ---
Jacques cole in [facility] - 10/28/19 at 2101 by FIDENCIO PT TAKEN TO CT
--- NOTE | 2019-10-28 21:01 | NUR ---
PT TAKEN TO CT
--- NOTE | 2019-10-28 21:26 | NUR ---
PT RETURNED FROM CT AND RAD. DAUGHTER AT BEDSIDE. PT IS A/O X4.
--- NOTE | 2019-10-28 21:41 | NUR ---
Dr. Cruz examining patient.
--- NOTE | 2019-10-28 22:21 | NUR ---
PT WOUND ON FOREHEAD COVERED WITH NON ADHERENT DRESSING AND WRAPPED WITH ROLLER GAUZE. PT WOUND ON L KNEE COVERED WITH BANDAID.
--- NOTE | 2019-10-28 22:22 | NUR ---
PT L WRIST WRAPPED WITH BRIANNA WRAP. +CSM
[2019-10-28 22:50] VITALS: BP 116/78
--- NOTE | 2019-10-28 22:50 | NUR ---
dcPatient discharged with v/s stable. Pt states relief. 0/10 pain. Wounds wrapped. bleeding controlled. Written and verbal after care instructions given and explained. Patient alert, oriented and verbalized understanding of instructions. Wheel Chair Assisted with to car. Daughter to take Pt home. All questions addressed prior to discharge. ID band removed. Patient advised to follow up with PMD. Patient educated on indication of medication including possible reaction and side effects. Opportunity to ask questions provided and answered.
== END 2019-10-28 22:50 | disposition home or self-care (01) ==
LOC: MED 20:32
DX: S63.682A Other sprain of left thumb, initial encounter (principal); S80.212A Abrasion, left knee, initial encounter; S00.81XA Abrasion of other part of head, initial encounter; I10 Essential (primary) hypertension; F03.90 Unspecified dementia, unspecified severity, without behavioral disturbance, psychotic disturbance, mood disturbance, and anxiety; I51.9 Heart disease, unspecified; Z79.899 Other long term (current) drug therapy; Z98.890 Other specified postprocedural states; W07.XXXA Fall from chair, initial encounter; Y93.89 Activity, other specified; Y92.89 Other specified places as the place of occurrence of the external cause; Y99.8 Other external cause status
CPT/HCPCS: 70450; 73130; 73560; 90471; 90715; 99284; Q0092

== ENCOUNTER 2019-11-04 00:20 | Inpatient (IN) | payer OTHER, BC ==
[~2019-11-04] VITALS: Ht 170.2 cm; Wt 77.1 kg
--- NOTE | 2019-11-04 00:24 | NUR ---
PT BIBA BLS. TAKEN TO BED 9
[2019-11-04 00:25] VITALS: BP 110/64
--- NOTE | 2019-11-04 00:25 | NUR ---
PT 79 Y/O MALE BIBA FROM [facility] FOR C/O MULTIPLE EPISODES OF DIARRHEA. PT AAOX 3. PT DENIES PAIN. PT DENIES N/V. PT BS PRESENT X4. LUNG SOUNDS CLEAR A/P BILAT. RESPIRATIONS ARE EVEN AND UNLBORED. PT NON AMBULATORY. PT HAS EQUAL STRENGTH IN UE AND LE. PT ON MONITOR. VSS. MEDHX: PARKINSONS, DEMENTIA, HTN ALLERGIES: NKA
--- NOTE | 2019-11-04 00:33 | NUR ---
Dr. Patino examining patient.
--- NOTE | 2019-11-04 00:45 | NUR ---
LAB AT BEDSIDE.
--- NOTE | 2019-11-04 00:56 | NUR ---
PT TAKEN TO CT
[2019-11-04 00:59] LABS: BASOPHILS % (AUTO) 0.5 % (0.0-2.0); HEMATOCRIT 40.8 % (36-52); HEMOGLOBIN 13.6 g/dL (12.0-18.0); LYMPHOCYTES # (AUTO) 0.7 K/uL (2.0-11.5); LYMPHOCYTES % (AUTO) 8.8 % (20.5-51.1); MEAN CORPUSCULAR HEMOGLOBIN 31 pg (27-31); MEAN CORPUSCULAR HGB CONC 33 g/dL (33-37); MEAN CORPUSCULAR VOLUME 92.1 fL (80-94); MONOCYTES # (AUTO) 0.6 K/uL (0.8-1.0); MONOCYTES % (AUTO) 7.1 % (1.7-9.3); NEUTROPHILS # (AUTO) 6.9 K/uL (1.8-7.7); NEUTROPHILS % (AUTO) 83.6 % (42.2-75.2); PLATELET COUNT (AUTO) 204 K/uL (140-450); RED BLOOD CELL COUNT(AUTO) 4.43 MIL/uL (4.20-6.10); RED CELL DISTRIBUTION WIDTH 14.1 % (11.6-13.7); WHITE BLOOD COUNT (AUTO) 8.2 K/uL (4.8-10.8)
[2019-11-04 01:12] LABS: ALBUMIN 3.8 g/dL (3.4-5.0); ANION GAP 20.8 (8-16); ASPARTATE AMINOTRANSFERASE 264 U/L (15-37); CARBON DIOXIDE 17.6 mmol/L (21-32); CHLORIDE 107 mmol/L (98-107); CREATININE 2.2 mg/dL (0.6-1.3); GLUCOSE 88 mg/dL (74-106); LIPASE 84 U/L (73-393); POTASSIUM 3.4 mmol/L (3.5-5.1); SODIUM SERUM 142 mmol/L (136-145); TOTAL BILIRUBIN 0.5 mg/dL (0.0-1.0); UREA NITROGEN, BLOOD 45 mg/dL (7-18)
--- NOTE | 2019-11-04 01:22 | NUR ---
PT RETURNED FROM CT VIA W/C.
[2019-11-04] MEDS ORDERED: NACL 0.9% 1,000 ML IV ONE (01:25)
[2019-11-04] MEDS ORDERED: POTASSIUM CHLORIDE 10 MEQ TABER PO ONE ×2 (02:15→03:53)
[2019-11-04] MEDS ORDERED: ACETAMINOPHEN 325 MG TAB PO PRN (02:15)
[2019-11-04] MEDS ORDERED: ONDANSETRON 4 MG/2 ML VIAL IVP PRN (02:15)
--- NOTE | 2019-11-04 02:23 | NUR ---
IV PLACED IN L HAND 22G. IV SITE IS PATENT. NO SWELLING OR PAIN NOTED. PT IFV NS 0.9% 1L RUNNING CONTINOUSLY.
--- NOTE | 2019-11-04 02:40 | NUR ---
PT RESTING IN BED EYES CLOSED. RESPIRATIONS ARE EVEN AND UNLABORED. SKIN IS WARM AND DRY TO TOUCH. PT IVF RUNNING CONTINOUSLY. IV SITE IS PATENT. VSS. BED LOCKED AND IN LOWEST POSTION.
[2019-11-04] MEDS ORDERED: ALPR0.252 PO (02:45)
[2019-11-04] MEDS ORDERED: PRAM0.5T4 PO (02:45)
[2019-11-04 02:46] LABS: FREE T4 (FREE THYROXINE) 0.84 ng/dL (0.76-1.46); MAGNESIUM 2.4 mg/dL (1.8-2.4); PROTHROMBIN TIME 10.6 secs (10.8-13.4); THYROID STIMULATING HORMONE 1.46 uIU/mL (0.34-3.74)
[2019-11-04] MEDS ORDERED: AMLO5TAB PO (02:47)
--- NOTE | 2019-11-04 03:16 | NUR ---
URNIAL GIVEN TO PT. PT ABLE TO USE URINAL AT BEDSIDE. PERNIEAL CARE DONE. SKIN LEFT CLEAN AND DRY. PT SKIN INTACT.
--- NOTE | 2019-11-04 03:30 | NUR ---
RECEIVED BEDSIDE REPORT FROM ED NURSE ANGELITA. PATIENT IS BROUGHT INTO UNIT VIA GURNEY. PATIENT IS BEDBOUND. NO SOB OR DISTRESS NOTED. ON ROOM AIR. IV ACCESS NOTED ON LEFT HAND 22 GAUGE, PATENT AND INTACT AND INFUSING WELL. PATIENT NOTED WITH SCAB ON HIS HEAD AND A HEALING SKIN TEAR ON LEFT KNEE. PICTURE TAKEN AND PUT IN CHART. MRSA SWAB DONE AND SENT TO LAB. INITIAL ASSESSMENT DONE. INITIAL VITAL SIGNS TAKEN. ORIENTED TO ROOM. CALL LIGHT PLACED WITHIN PATIENT REACH. WILL CONTINUE TO MONITOR PATIENT.
--- NOTE | 2019-11-04 03:30 | NUR ---
Patient will be admitted to care of . Admited to [facility]. Will go to room 127B. Belongings list completed. Report to RONNIE CHAUDHARI.
--- NOTE | 2019-11-04 03:57 | NUR ---
K DUR GIVEN AT THIS TIME. WILL CONTINUE TO MONITOR PATIENT.
[2019-11-04] MEDS: NACL 0.9% 1,000 ML IV SCH ×3 (04:12→22:12)
[2019-11-04 04:13] VITALS: BP 133/69
--- NOTE | 2019-11-04 05:40 | NUR ---
ROUNDS DONE. VISIBLE CHEST RISE AND FALL NOTED. CALL LIGHT WITHIN PATIENT REACH. WILL CONTINUE TO MONITOR PATIENT.
[2019-11-04] MEDS ORDERED: LORA-476 PO (05:46)
[2019-11-04] MEDS ORDERED: FLEPED RC (05:46)
[2019-11-04] MEDS ORDERED: FLONAS NS (05:46)
[2019-11-04] MEDS ORDERED: CARB1TER4 PO (05:46)
[2019-11-04] MEDS ORDERED: HYDR-5092 PO (05:46)
[2019-11-04] MEDS ORDERED: FEXO1TAB12 PO (05:46)
[2019-11-04] MEDS ORDERED: QUET25TA PO (05:46)
[2019-11-04] MEDS ORDERED: BISA-213 RC (05:46)
[2019-11-04] MEDS ORDERED: MAGN400S60 PO (05:46)
[2019-11-04] MEDS ORDERED: DOCU-299 PO (05:46)
[2019-11-04] MEDS ORDERED: HYDROcodone/APAP 10/325 MG 1 TAB TAB PO PRN (06:00)
[2019-11-04] MEDS ORDERED: DIPHENOXYLATE /ATROPINE 2.5 MG TAB PO PRN (06:10)
[2019-11-04 06:36] LABS: CHOL/HDL RATIO 2.1 (1-4.5)
--- NOTE | 2019-11-04 06:38 | NUR ---
PATIENT IN STABLE CONDITION. VISIBLE CHEST RISE AND FALL NOTED. NO SOB OR DISTRESS. CALL LIGHT WITHIN PATIENT REACH. WILL ENDORSE TO AM SHIFT NURSE FOR CONTINUITY OF CARE.
--- NOTE | 2019-11-04 07:26 | NUR ---
RECEIVED BEDSIDE REPORT FROM HOME CARE GIVER RN FOR CONTINUITY OF CARE. PATIENT IS AAOX2, COOPERATIVE BUT CONFUSED AT TIMES. IV ACCESS NOTED ON LEFT HAND 22 GAUGE, PATENT AND INTACT AND INFUSING WELL. PATIENT NOTED WITH SCAB ON HIS HEAD AND A HEALING SKIN TEAR ON LEFT KNEE. DISCUSSED POC WITH PT AND PT VERBALIZED UNDERSTANDING. BOARD UPDATED. SAFETY MEASURES IN PLACE. WILL ROUND FREQUENTLY ON PT THROUGHOUT THE SHIFT.
[2019-11-04 08:00] VITALS: BP 113/61
--- NOTE | 2019-11-04 08:25 | NUR ---
PATIENT HAS BEEN SCREENED AND CATEGORIZED MODERATE NUTRITION RISK. PATIENT WILL BE SEEN WITHIN 3-5 DAYS OF ADMISSION. 11/06/19 11/08/[address]
[2019-11-04] MEDS: LORATADINE 10 MG TAB PO SCH (09:00)
[2019-11-04] MEDS ORDERED: CARBIDOPA PO SCH (09:00)
[2019-11-04] MEDS: amLODIPine 5 MG TAB PO SCH (09:00)
[2019-11-04] MEDS: FLUTICASONE NASAL 50 MCG/ACTUATION 16 GM BTL NS SCH (09:00)
[2019-11-04] MEDS: SENNA 8.6 MG TAB PO SCH (09:00)
[2019-11-04] MEDS ORDERED: PSEUDOEPHEDRINE PO SCH (09:00)
[2019-11-04] MEDS ORDERED: FEXOFENADINE PO SCH (09:00)
[2019-11-04] MEDS ORDERED: LEVODOPA PO SCH (09:00)
[2019-11-04] MEDS: LORazepam 1 MG TAB PO SCH (09:03)
[2019-11-04] MEDS: PRAMIPEXOLE 0.5 MG TAB PO SCH ×3 (09:03→17:00)
[2019-11-04] MEDS: ALPRAZolam 0.25 MG TAB PO SCH ×2 (09:04→21:41)
--- NOTE | 2019-11-04 09:47 | NUR ---
ADMINISTERED MORNING MEDS TO PT. PT TOLERATED WELL. ALL OTHER NEEDS MET. WILL CONTINUE TO ROUND ON PT. BED IN LOW POSITION, CALL LIGHT WITHIN REACH.
--- NOTE | 2019-11-04 11:45 | NUR ---
PT RESTING IN BED. ALL NEEDS MET. WILL CONTINUE TO ROUND FREQUENTLY ON PT.
--- NOTE | 2019-11-04 11:49 | NUR ---
DC PLANNIN YRS OLD MALE PATIENT WAS ADMITTED FROM [facility] WITH A DX OF DIARRHEA AND DEHYDRATION. PT HAS A HX OF PARKINSON/S DISEASE HTN, DEMENTIA . CT ABD/PELVIS SHOWED CHRONIC DIVERTICULA AND AIR-FLUID LEVELS. C-DIFF AND STOOL CULTURES ORDERED. STARTED IVF, CONTINUE HOME MEDS . DC PLAN TO GO BACK TO [facility] WHEN STABLE CM TO FOLLOW. Addendum: 11/05/19 at 1256 by Jeni Chambers CM RECEIVED AN ORDER FOR DC ORDER FOR SNF EVAL FOR PT TOMORROW 11/06/2019. MET WITH THE PATIENT AT THE BEDSIDE TO DISCUSS DC PLANNING AND IS NOT IN AGREEMENT. STATING "I WANT TO GO BACK TO [facility] NOT TO A PENITENTIARY." I EXPLAINED TO HIM THAT IT WILL BE A SHORT TERM STAY JUST TO FINISH THE ANTIBIOTIC AND GET BACK HIS STRENGTH. HE IS STILL REFUSING. CONTACTED PATIENT'S MEDICAL DECISION MAKER (DAUGHTER) ISREAL PEREIRA AT [phone] TO DISCUSS DC PLAN. I MADE HER AWARE THAT THE PATIENT IS REFUSING TO GO TO A SNF. I EXPLAINED IT TO HER THAT PATIENT WILL BE NEEDING ANTIBIOTICS AND PT. SHE STATED HER DAD CAN BE STUBBORN AT TIMES, HOWEVER SHE IS AGREEABLE FOR SNF. SHE ALSO STATED "WHATEVER IS BEST AND IT'S GOING TO BE SHORT TERM ANYWAY." I TOLD HER THAT I WILL CONTACT HER ONCE THEIR WILL BE AN ACCEPTING FACILITY. REFERRAL SENT TO [facility]. PER JAGDISH OF [facility], THEY ARE ABLE TO ACCEPT THE PATIENT. DR. MENDEZ MADE AWARE. Addendum: 11/05/19 at 1357 by Jeni Chambers CM PER [facility], THEY ARE ABLE TO ACCEPT THE PATIENT. DR. MENDEZ MADE AWARE. CONTACTED ISREAL PEREIRA, NO ANSWER. LEFT MESSAGE. Addendum: 11/06/19 at 0822 by Jeni Chambers CM BENITA ORDER FAXED TO [facility]. Addendum: 11/06/19 at 0954 by Jeni Chambers CM [facility] ROOM 37A UNDER DR. ARCHER. SHE ALSO STATED THEY ARE ABLE TO HELP WITH THE TRANSPORT. PER [facility], THEY WILL SET UP TRANSPORT. Addendum: 11/06/19 at 0956 by Jeni Chambers CM CHARGE NURSE MADE AWARE.
--- NOTE | 2019-11-04 12:44 | NUR ---
CAR INSPECTION AND REPAIR MANAGER DISCHARGE PLAN ASSESSMENT [facility] Patient: Mac Pratt : 1940 Age/Sex: 79/M Unit#: [id number] Room/Bed: 127/B User: June [place] CM Date: 11/04/19 12:33 Type: CM: Discharge Planning Basic Screen: No High Risk DC Screen Yes Name: Mihaela Cruz Pre-Admission Living Arrangements: Board and Care Prior ADL Needs Assistance Current Home Health Name/Tel: N/A Current Name/Tel: Walker, wheelchair Current Hospice Name/Tel: N/A Current Dialysis Name/Tel: N/A Healthcare Decision Maker: Next of Kin Patient/Family Have Educational Needs No Tentative Discharge Plan/Destination: SNF/ECF Will require assistance post discharge: Yes - Possible rehab Referred to [employer] [facility]: No Tentative Discharge Plan Summary: 79 y/o male pt admitted for dehydration and diarrhea. Pt with hx of Parkinson's, dementia, and hypertension. Pt is a&o x2 with forgetfulness noted. Pt resides at [facility]. Per facility, pt is able to ambulate, at times, with a walker and/or has a wheelchair for when he's having a "bad" day. Pt requires assistance with ADLs which is provided by staff. Pt able to feed self and able to make needs known. Facility reported the pt is full code according to Advance Directive. Sw requested a copy of the document. Pt's decison maker is daughter Mihaela Cruz. Pt to be evaluated for physical therapy needs. DC plan SNF vs [facility] will continue following up as needed. Signature: June Whittington LCSW Date: Nov 04, 2019
--- NOTE | 2019-11-04 12:59 | NUR ---
[facility] CONSULT WAS RECEIVED. PATIENT WILL BE SEEN 1-[address] DAYS OF TODAY. [address]
--- NOTE | 2019-11-04 13:22 | NUR ---
PT RESTING IN BED. ALL NEEDS E=MET
[2019-11-04] MEDS: CARBIDOPA/LEVODOPA 25/100 MG 1 TAB PO SCH ×2 (13:32→21:48)
[2019-11-04] MEDS: PIPERACILLIN/TAZOBACTAM 3.375 GM in DEXTROSE 5% 50 ML IV SCH ×2 (13:32→21:40)
[2019-11-04 14:00] LABS: BASOPHILS # (AUTO) 0.1 K/uL (0.00-0.22); BASOPHILS % (AUTO) 0.9 % (0.0-2.0); EOSINOPHILS # (AUTO) 0.1 K/uL (0-0.4); EOSINOPHILS % (AUTO) 0.8 % (0.0-4.0); HEMATOCRIT 44.6 % (36-52); HEMOGLOBIN 14.8 g/dL (12.0-18.0); LYMPHOCYTES % (AUTO) 14.8 % (20.5-51.1); MEAN CORPUSCULAR HEMOGLOBIN 31 pg (27-31); MEAN CORPUSCULAR HGB CONC 33 g/dL (33-37); MEAN CORPUSCULAR VOLUME 92.9 fL (80-94); MONOCYTES # (AUTO) 0.6 K/uL (0.8-1.0); MONOCYTES % (AUTO) 9.1 % (1.7-9.3); NEUTROPHILS # (AUTO) 5.2 K/uL (1.8-7.7); NEUTROPHILS % (AUTO) 74.4 % (42.2-75.2); PLATELET COUNT (AUTO) 184 K/uL (140-450); RED CELL DISTRIBUTION WIDTH 14.2 % (11.6-13.7)
[2019-11-04 14:16] LABS: ANION GAP 16.4 (8-16); CARBON DIOXIDE 20.4 mmol/L (21-32); CHLORIDE 111 mmol/L (98-107); CREATININE 1.6 mg/dL (0.6-1.3); GLUCOSE 78 mg/dL (74-106); POTASSIUM 3.8 mmol/L (3.5-5.1); SODIUM SERUM 144 mmol/L (136-145); UREA NITROGEN, BLOOD 38 mg/dL (7-18)
--- NOTE | 2019-11-04 14:34 | NUR ---
11/04/19 RD INITIAL ASSESSMENT COMPLETED PLEASE REFER TO NUTRITION ASSESSMENT UNDER CARE ACTIVITY FOR ESTIMATED NUTRITIONAL NEEDS. 1. RECOMMEND [facility] SOFT DIET TOLERATED 2. RECOMMEND ENSURE BID 3. PROVIDE ASSISTANCE WITH MEALS 4. RD TO FOLLOW-UP 2-3 DAYS, HIGH RISK RENEE VALVERDE, RD
[2019-11-04 16:00] VITALS: BP 92/51
--- NOTE | 2019-11-04 16:24 | NUR ---
*S.T. BEDSIDE SWALLOW EVAL COMPLETED* Pt presents w/ adequate oropharyngeal swallow function across all textures w/o s/s aspiration. Pt somewhat lethargic and did not make attempts to self-feed. Recommend: 1) Continue current diet textures of mechanical soft diet, thin liquids. Straws okay. 2) P.O. meds okay whole, one at a time. No further swallow tx indicated at this time. [place] [facility] Endorsed to FARA Rich TIME [phone]
--- NOTE | 2019-11-04 19:30 | NUR ---
RECEIVED BEDSIDE REPORT FROM AM SHIFT NURSE. PATIENT IS LYING IN BED, AWAKE AND ALERT. NO SOB OR DISTRESS NOTED. ON ROOM AIR. IV ACCESS ON LEFT HAND 22 GAUGE, PATENT, INTACT AND INFUSING WELL. PATIENT NOTED WITH DRY SCAB ON HEAD AND HEALING WOUND ON LEFT KNEE. INITIAL ASSESSMENT DONE. BED IN LOW, SAFETY MEASURES IN PLACE. CALL LIGHT WITHIN PATIENT REACH. WILL CONTINUE TO MONITOR PATIENT.
--- NOTE | 2019-11-04 19:38 | NUR ---
ENDORSED PT TO LIGHTING FIXTURES DECORATOR FOR CONTINUITY OF CARE. PT IN STABLE CONDITION AT THIS TIME.
[2019-11-04] MEDS ORDERED: NON-FORMULARY ITEM (Melatonin (Melatonin) 5 MG) PO SCH (21:00)
--- NOTE | 2019-11-04 21:40 | NUR ---
ROUNDS DONE. VISIBLE CHEST RISE AND FALL NOTED. CALL LIGHT WITHIN PATIENT REACH. WILL CONTINUE TO MONITOR PATIENT.
[2019-11-04] MEDS: QUEtiapine FUMARATE 25 MG TAB PO SCH (21:42)
[2019-11-04] MEDS: MELATONIN 5 MG TAB PO SCH (21:48)
--- NOTE | 2019-11-04 23:00 | NUR ---
ROUNDS DONE. VISIBLE CHEST RISE AND FALL NOTED. WILL CONTINUE TO MONITOR PATIENT.
[2019-11-05 00:30] VITALS: BP 132/71
--- NOTE | 2019-11-05 00:30 | NUR ---
VITAL SIGNS DONE AT THIS TIME. NO SOB OR DISTRESS NOTED WILL CONTINUE TO MONITOR PATIENT.
[2019-11-05] MEDS: NACL 0.9% 1,000 ML IV SCH (01:38)
--- NOTE | 2019-11-05 02:50 | NUR ---
ROUNDS DONE. VISIBLE CHEST RISE AND FALL NOTED. CALL LIGHT WITHIN PATIENT REACH. WILL CONTINUE TO MONITOR PATIENT.
--- NOTE | 2019-11-05 05:15 | NUR ---
ROUNDS DONE. VISIBLE CHEST RISE AND FALL NOTED. WILL CONTINUE TO MONITOR PATIENT.
[2019-11-05] MEDS: PIPERACILLIN/TAZOBACTAM 3.375 GM in DEXTROSE 5% 50 ML IV SCH ×3 (05:31→17:07)
[2019-11-05] MEDS: CARBIDOPA/LEVODOPA 25/100 MG 1 TAB PO SCH ×3 (05:32→22:33)
[2019-11-05 06:07] LABS: HEPATITIS A ANTIBODY IGM Negative (Negative); HEPATITIS B CORE AB TOTAL Negative (Negative); HEPATITIS B SURFACE ANTIBODY Non Reactive (.); HEPATITIS B SURFACE ANTIGEN Negative (Negative)
--- NOTE | 2019-11-05 06:08 | NUR ---
PATIENT IN STABLE CONDITION. VISIBLE CHEST RISE AND FALL NOTED. NO DISTRESS NOTED. CALL LIGHT WITHIN PATIENT REACH. WILL ENDORSE TO AM SHIFT NURSE FOR CONTINUITY OF CARE.
[2019-11-05 06:26] LABS: ANION GAP 17.7 (8-16); CARBON DIOXIDE 17.7 mmol/L (21-32); CHLORIDE 114 mmol/L (98-107); CREATININE 1.2 mg/dL (0.6-1.3); GLUCOSE 79 mg/dL (74-106); POTASSIUM 3.4 mmol/L (3.5-5.1); SODIUM SERUM 146 mmol/L (136-145); UREA NITROGEN, BLOOD 25 mg/dL (7-18)
[2019-11-05 06:34] LABS: BASOPHILS # (AUTO) 0.1 K/uL (0.00-0.22); EOSINOPHILS # (AUTO) 0.1 K/uL (0-0.4); EOSINOPHILS % (AUTO) 0.9 % (0.0-4.0); HEMATOCRIT 38.7 % (36-52); HEMOGLOBIN 13.3 g/dL (12.0-18.0); LYMPHOCYTES # (AUTO) 1.1 K/uL (2.0-11.5); LYMPHOCYTES % (AUTO) 13.5 % (20.5-51.1); MEAN CORPUSCULAR HEMOGLOBIN 32 pg (27-31); MEAN CORPUSCULAR HGB CONC 34 g/dL (33-37); MEAN CORPUSCULAR VOLUME 92.3 fL (80-94); MONOCYTES # (AUTO) 0.6 K/uL (0.8-1.0); MONOCYTES % (AUTO) 7.3 % (1.7-9.3); NEUTROPHILS % (AUTO) 77.3 % (42.2-75.2); PLATELET COUNT (AUTO) 161 K/uL (140-450); RED CELL DISTRIBUTION WIDTH 13.7 % (11.6-13.7); WHITE BLOOD COUNT (AUTO) 7.8 K/uL (4.8-10.8)
--- NOTE | 2019-11-05 07:00 | NUR ---
RECEIVED REPORT FROM SWITCHBOARD OPERATOR ASSISTANT NURSE. PT IS CURRENTLY ASLEEP IN BED WITH NO SIGNS OF DISTRESS NOTED USING FLACC. PT IS ON ROOM AIR AND RESPIRATIONS ARE EVEN AND UNLABORED WITH VISIBLE CHEST RISE AND FALL. PT HAS DRY SCABBING ON TOP OF HEAD AND HEALING WOUND ON KNEE FROM PREVIOUS FALL AT OTHER FACILITY. IV IS PATENT AND ASYMPTOMATIC WITH FLUIDS RUNNING PER ORDER. BED IS IN LOW, SEMI-FOWLERS POSITION WITH SAFETY MEASURES IN PLACE, CALL LIGHT WITHIN REACH AND WILL CONTINUE TO MONITOR PLAN OF CARE.
[2019-11-05 07:14] LABS: PHOSPHORUS 2.3 mg/dL (2.5-4.9)
[2019-11-05 08:00] VITALS: BP 111/53
[2019-11-05] MEDS: LACTOBACILLUS RHAMNOSUS GG 1 EACH CAP PO SCH (08:50)
[2019-11-05] MEDS: LORazepam 1 MG TAB PO SCH (08:51)
[2019-11-05] MEDS: ALPRAZolam 0.25 MG TAB PO SCH ×2 (08:51→22:13)
[2019-11-05] MEDS: LORATADINE 10 MG TAB PO SCH (08:52)
[2019-11-05] MEDS: PRAMIPEXOLE 0.5 MG TAB PO SCH ×3 (08:52→17:05)
[2019-11-05] MEDS: amLODIPine 5 MG TAB PO SCH (08:53)
[2019-11-05] MEDS: FLUTICASONE NASAL 50 MCG/ACTUATION 16 GM BTL NS SCH (09:00)
--- NOTE | 2019-11-05 09:12 | NUR ---
CRITICAL LAB: MRSA NARES +. INFORMED DR. LUNA.
--- NOTE | 2019-11-05 09:23 | NUR ---
PT IS AWAKE AND ALERT IN BED EATING BREAKFAST. MEDICATIONS ADMINISTERED PER ORDER AND TOLERATED WELL. PT REFUSED ONE MEDICATION AND WAS NO ADMINISTERED. PT DOES NOT COMPLAIN OF ANY PAIN. SAFETY MEASURES IN PLACE, CALL LIGHT WITHIN REACH, AND WILL CONTINUE TO MONITOR.
[2019-11-05] MEDS: SENNA 8.6 MG TAB PO SCH (09:27)
[2019-11-05] MEDS: NACL 0.45% 1,000 ML IV SCH (10:00)
--- NOTE | 2019-11-05 10:01 | NUR ---
HANG NEW IV BAG OF 0.45% NS AT RATE OF 40 ML/HR.
[2019-11-05] MEDS: MUPIROCIN CA NASAL 2% 1GM TUBE NS SCH (10:43)
--- NOTE | 2019-11-05 10:43 | NUR ---
GIVEN BACTROBAN IN BOTH NARES. EXPLAINED MEDICATION. PATIENT VERBALIZED UNDERSTANDING. BED IN LOW POSITION. CALL LIGHT IS WITHIN REACH. WILL CONTINUE TO MONITOR
[2019-11-05] MEDS ORDERED: POTASSIUM PHOSPHATE 15 MM in NACL 0.9% 250 ML IV SCH (11:00)
[2019-11-05] MEDS: CHLORHEXADINE GLUC 2% CLOTH TP SCH (11:03)
--- NOTE | 2019-11-05 11:05 | NUR ---
GIVEN CHG BATH AND HANG POTASSIUM PHOSPHATE VIA IVPB. EXPLAINED MEDICATIONS. PATIENT VERBALIZED UNDERSTANDING. WILL CONTINUE TO MONITOR
--- NOTE | 2019-11-05 11:10 | NUR ---
PT AT BEDSIDE
--- NOTE | 2019-11-05 11:20 | NUR ---
SACRAL REDNESS NOTED.
--- NOTE | 2019-11-05 11:25 | NUR ---
EMERGENCY MANAGEMENT CONSULTANT, ELEANOR, AT BESIDE DISCUSSING SNF PLACEMENT
--- NOTE | 2019-11-05 12:30 | NUR ---
URINE SAMPLE COLLECTED. WILL SEND TO THE LAB
--- NOTE | 2019-11-05 12:36 | NUR ---
HANG SOZYN VIA IVPB. GIVEN PO MEDICATIONS SCHEDULED. GIVEN MEDICATION EDUCATION. WILL CONTINUE TO MONITOR
--- NOTE | 2019-11-05 12:53 | NUR ---
PATIENT IS EATING LUNCH AT THIS TIME. NO SIGNS OF DISTRESS NOTED. BED IN LOW POSITION. CALL LIGHT IS WITHIN REACH. WILL CONTINUE TO MONITOR
[2019-11-05 13:16] LABS: APPEARANCE,URINE CLEAR (CLEAR); BILIRUBIN,URINE NEGATIVE (NEGATIVE); BLOOD, URINE TRACE-I (NEGATIVE); COLOR,URINE YELLOW (YELLOW); LEUKOCYTE ESTERASE ,URINE NEGATIVE (NEGATIVE); NITRITE, URINE NEGATIVE (NEGATIVE); PH,URINE 5.5 (5.0-9.0); UGLUCOSE NEGATIVE (NEGATIVE)
[2019-11-05 13:34] LABS: RBC,URINE 0-5 /HPF (0-5)
[2019-11-05 13:35] LABS: WBC,URINE 0 /HPF (0-5)
--- NOTE | 2019-11-05 14:46 | NUR ---
EDUCATED PATIENT ON HOW TO USE INCENTIVE SPIROMETER. PATIENT DEMONSTRATED WELL. DONE 5 INSPIRATIONS AT 500 ML. PATIENT VERBALIZED THAT HE WILL USE IT 10 TIMES PER HOURS.
[2019-11-05 16:00] VITALS: BP 109/59
--- NOTE | 2019-11-05 17:16 | NUR ---
PT IS AWAKE, ALERT, LAYING IN BED. ADMINISTERED MEDICATIONS PER ORDER AND PT TOLERATED WELL WITH NO COMPLAINTS OF PAIN AT THIS TIME. SAFETY MEASURES IN PLACE, CALL LIGHT WITHIN REACH, AND WILL CONTINUE TO MONITOR.
--- NOTE | 2019-11-05 17:30 | NUR ---
PATIENT IS SLEEPING AT THIS TIME. NO SIGNS OF DISTRESS NOTED. BED IN LOW POSITION. CALL LIGHT IS WITHIN REACH.
[2019-11-05] MEDS ORDERED: BENZONATATE 100 MG CAPLF PO PRN (17:45)
--- NOTE | 2019-11-05 19:20 | NUR ---
REPORT GIVEN TO ENGRAVER WOOD NURSE. PT IS ASLEEP IN BED WITH NO SIGNS OF DISTRESS NOTED. IVF IS ASYMPTOMATIC AND RUNNING PER ORDERS. PT IS IN STABLE CONDITION WITH SAFETY MEASURES IN PLACE AND CALL LIGHT WITHIN REACH.
--- NOTE | 2019-11-05 19:20 | NUR ---
RECD. RESTING IN BED, AWAKE, A/OX3, RESPIRATION EVEN AND UNLABORED. IV OF 1/2 NS AT 40- ML/HR INFUSING, LEFT HAND G22. SAFETY MEASURES ENFORCED. BED IN THE LOWEST POSITION, SIDE RAILS UP, BED ON ALARM. PLAN OF CARE DISCUSSED WITH PATIENT. NEEDS REINFORCEMENT. DENIES PAIN 0/10.
--- NOTE | 2019-11-05 19:21 | NUR ---
Patient's Plan of Care was discussed and reviewed with MAKEDA: CELESTE. WILL CONTINUE TO MONITOR.
--- NOTE | 2019-11-05 20:30 | NUR ---
GET OUT OF BED WITHOUT CALLING NURSE. ASSISTED TO BR BY FARA LOCKE.
--- NOTE | 2019-11-05 20:45 | NUR ---
ABLE TO CLEANED AFTER HAVING LOOSE BM, MODERATE AMOUNT, GREENISH BLACK IN COLOR. ASSISTED BACK TO BED WITH HELP OF CORPORATE LICENSED BROKER, PATIENT GAIT UNSTEADY. BACK TO BED SAFELY.
--- NOTE | 2019-11-05 21:14 | NUR ---
PT SEEN AT THIS TIME. INCENTIVE SPIROMETRY COMPLETED AT THIS TIME. AVERAGE INSPIRED VOLUME 1000ML AND PREDICTED VOLUME 2000ML. WILL CONTINUE TO MONITOR.
[2019-11-05] MEDS: QUEtiapine FUMARATE 25 MG TAB PO SCH (22:13)
[2019-11-05] MEDS: MELATONIN 5 MG TAB PO SCH (22:14)
--- NOTE | 2019-11-05 22:45 | NUR ---
NEGATIVE FOR C DIFF TEST, MEDICATED WITH LOMOTIL 2 TABS PER MD ORDER.
[2019-11-06] VITALS: BP 129/70
--- NOTE | 2019-11-06 00:55 | NUR ---
CONFUSED, TOOK OUT SHIRT AND GOWN. REORIENTED TO HOSPITAL SETTING. DOES WANT TO BE TOUCHED, BACK TO SLEEP AFTER FEW MINUTES.
[2019-11-06] MEDS: PIPERACILLIN/TAZOBACTAM 3.375 GM in DEXTROSE 5% 50 ML IV SCH ×3 (01:02→13:37)
--- NOTE | 2019-11-06 01:45 | NUR ---
CALL NURSE, WANTS TO GO OUT OF BED TO GO TO BR. VOIDED, BACK TO BED AFTER VOIDING. GAIT STEADY. SAFETY MAINTAINED.
--- NOTE | 2019-11-06 04:00 | NUR ---
SLEEPING COMFORTABLY IN BED.
[2019-11-06] MEDS: CARBIDOPA/LEVODOPA 25/100 MG 1 TAB PO SCH ×2 (05:52→13:34)
--- NOTE | 2019-11-06 06:00 | NUR ---
TALKING IN SLEEP. RESPIRATION EVEN AND UNLABORED. NO DISTRESS NOTED.
[2019-11-06 06:33] LABS: BASOPHILS # (AUTO) 0.1 K/uL (0.00-0.22); BASOPHILS % (AUTO) 1.1 % (0.0-2.0); EOSINOPHILS # (AUTO) 0.2 K/uL (0-0.4); EOSINOPHILS % (AUTO) 3.5 % (0.0-4.0); HEMOGLOBIN 12.1 g/dL (12.0-18.0); LYMPHOCYTES # (AUTO) 1.8 K/uL (2.0-11.5); LYMPHOCYTES % (AUTO) 34.9 % (20.5-51.1); MEAN CORPUSCULAR HEMOGLOBIN 31 pg (27-31); MEAN CORPUSCULAR HGB CONC 34 g/dL (33-37); MEAN CORPUSCULAR VOLUME 91.9 fL (80-94); MONOCYTES # (AUTO) 0.5 K/uL (0.8-1.0); NEUTROPHILS # (AUTO) 2.5 K/uL (1.8-7.7); NEUTROPHILS % (AUTO) 50.5 % (42.2-75.2); PLATELET COUNT (AUTO) 178 K/uL (140-450); RED BLOOD CELL COUNT(AUTO) 3.92 MIL/uL (4.20-6.10); RED CELL DISTRIBUTION WIDTH 14.1 % (11.6-13.7)
[2019-11-06 06:59] LABS: ANION GAP 16.9 (8-16); CARBON DIOXIDE 19.7 mmol/L (21-32); CHLORIDE 112 mmol/L (98-107); CREATININE 1.2 mg/dL (0.6-1.3); GLUCOSE 82 mg/dL (74-106); POTASSIUM 3.6 mmol/L (3.5-5.1); SODIUM SERUM 145 mmol/L (136-145); UREA NITROGEN, BLOOD 17 mg/dL (7-18)
--- NOTE | 2019-11-06 07:00 | NUR ---
ON HAD ONE TIME DIARRHEA DURING SHIFT. CONDITION REMAIN STABLE.
--- NOTE | 2019-11-06 07:30 | NUR ---
ENDORSED TO AM SHIFT NURSES FOR CONTINUITY OF CARE.
--- NOTE | 2019-11-06 07:30 | NUR ---
RECEIVED REPORT FROM DATA CENTER ARCHITECT NURSE. PATIENT IS SITTING UP IN BED GETTING AND READY FOR BREAKFAST. AA&O x2. RESPIRATIONS ARE EVEN AND UNLABORED, BREATHING TO RA. NO SIGNS OF DISTRESS NOTED. L HAND IV 22 G, CLEAN AND INTACT, RUNNING PER MD ORDERS. CONTINENT, BATHROOM ASSIST. SKIN INTACT. SAFETY MEASURES IN PLACE, CONTACT PRECAUTION IN PLACE AND SIGN POSTED. BED IN LOW POSITION, CALL LIGHT WITHIN REACH. BED ALARM ACTIVATED. REVIEWED PLAN OF CARE WITH PATIENT. WILL CONTINUE TO MONITOR.
[2019-11-06 08:00] VITALS: BP 134/71
[2019-11-06] MEDS ORDERED: LACT-81 PO (08:09)
[2019-11-06] MEDS ORDERED: PIPE1SOL IV (08:09)
[2019-11-06] MEDS: SENNA 8.6 MG TAB PO SCH (09:00)
[2019-11-06] MEDS ORDERED: PSYLLIUM 12.2 GM/PKT PO SCH (09:00)
[2019-11-06] MEDS: PRAMIPEXOLE 0.5 MG TAB PO SCH ×2 (10:09→13:35)
[2019-11-06] MEDS: FLUTICASONE NASAL 50 MCG/ACTUATION 16 GM BTL NS SCH (10:09)
[2019-11-06] MEDS: LACTOBACILLUS RHAMNOSUS GG 1 EACH CAP PO SCH (10:10)
[2019-11-06] MEDS: LORazepam 1 MG TAB PO SCH (10:10)
[2019-11-06] MEDS: LORATADINE 10 MG TAB PO SCH (10:12)
[2019-11-06] MEDS: ALPRAZolam 0.25 MG TAB PO SCH (10:12)
[2019-11-06] MEDS: amLODIPine 5 MG TAB PO SCH (10:13)
[2019-11-06] MEDS: NACL 0.45% 1,000 ML IV SCH (10:13)
--- NOTE | 2019-11-06 10:13 | NUR ---
ASSISTED PT TO USE THE BATHROOM AND BACK ON BED SAFELY. CHECKED BP PRIOR TO MED ADMIT, BP 147/76 PULSE 68. ADMINISTERED MEDS PER MD ORDER, MEDS EDUCATION PROVIDED TO PT AND PT REFUSED SENNA AND METAMUCIL AND STATED "I DON'T WANT THEM. I HAVE BEEN GOING TO THE BATHROOM AND DIARRHEA.", HOLD PER PT REQUESTED. PT TOLERATED PO MEDS WELL. PHYSICAL THERAPIST PIPER IS WORKING WITH PT AT THIS TIME. NO SIGNS OF DISTRESS NOTED. SAFETY MEASURES IN PLACE.
[2019-11-06] MEDS: MUPIROCIN CA NASAL 2% 1GM TUBE NS SCH (11:27)
[2019-11-06] MEDS: CHLORHEXADINE GLUC 2% CLOTH TP SCH (11:30)
--- NOTE | 2019-11-06 11:36 | NUR ---
PT RESTING IN BED, AROUSABLE TO VOICE. BACTROBAN ADMINISTERED, ORDERED. PATIENT WAS WIPED WITH CHLORHEXIDINE WIPES. NO DISTRESS NOTED. SAFETY MEASURES IN PLACE; CALL LIGHT WITHIN REACH, BED IN LOW POSITION, BED ALARM ACTIVATED. WILL CONTINUE TO MONITOR.
--- NOTE | 2019-11-06 13:37 | NUR ---
PT'S SCHEDULED MEDS WERE GIVEN, ORDERED. PT TOLERATED PO MEDICATION WELL. IVP ZOSYN WAS HUNG, AND IS INFUSING PER MD ORDERS. PATIENT IS SITTING UP IN BED, WATCHING TV. NO DISTRESS NOTED. SAFETY MEASURES IN PLACE. WILL CONTINUE TO MONITOR.
--- NOTE | 2019-11-06 14:22 | NUR ---
CALLED PT'S FAMILY MEMBER ISREAL [phone] AND INFORMED THAT PT WILL BE TRANSFER TO [facility] [phone] ARCHER IN ROOM 37A, ISREAL WAS AWARE. PROVIDED A CALL BACK NUMBER FOR FURTHER QUESTION.
--- NOTE | 2019-11-06 14:25 | NUR ---
CALLED BILL MUÑOZ AT [phone] AND SPOKE WITH CARLOTA. GAVE FULL REPORT AND ANSWERED ALL QUESTION. ELINOR WAS AWARE PT IS GOING TO TRANSFER TO ROOM 37A UNDER THE CARE OF DR ARCHER. PER CARLOTA, HER SHIFT IS OVER AT 1500 AND SHE WILL LET THE ON COMING SHIFT NURSE KNOW ABOUT THE TRANSFER AND REPORT. PROVIDED CALL BACK NUMBER FOR FURTHER QUESTION.
--- NOTE | 2019-11-06 15:15 | NUR ---
DISCHARGE INSTRUCTION PROVIDED TO PT AT BEDSIDE. EDUCATED PT ON DIET, DISEASE MANAGEMENT, MEDICATION REGIMEN AND SIDE EFFECTS, REINFORCEMENT NEEDED DUE TO MENTAL STATUS. ROLLOUT MANAGER CHANGED PT INTO PINK GOWN. REMOVED ALL ARM BANDS. KEEP IV WITHIN FOR ANTIBIOTIC AT [facility]. ACCORDING TO RECORD, PT RECEIVED FLU AND PNA VACCINES AT 2018, PT UNABLE TO DECIDED TO GET VACCINATIONS AT THIS TIME. PROVIDED PRINTED DISCHARGE PACKETS TO TRANSPORTATION PERSONNEL AND ONE WHITE T-SHIRT. PT IS GOING TO TRANSFER AT THIS TIME ACCOMPANIED BY [facility]. PT IS IN STABLE CONDITION.
== END 2019-11-06 15:15 | DRG 177 ==
LOC: MED 00:20 → MMU 02:20
PROVIDERS: ADMIT General Practice; ATTEND General Practice
DX: J69.0 Pneumonitis due to inhalation of food and vomit (principal); N17.0 Acute kidney failure with tubular necrosis; I42.9 Cardiomyopathy, unspecified; E87.0 Hyperosmolality and hypernatremia; E86.0 Dehydration; G20 Parkinson's disease; F02.80 Dementia in other diseases classified elsewhere, unspecified severity, without behavioral disturbance, psychotic disturbance, mood disturbance, and anxiety; I10 Essential (primary) hypertension; F41.9 Anxiety disorder, unspecified; Z87.891 Personal history of nicotine dependence; R74.0 Nonspecific elevation of levels of transaminase and lactic acid dehydrogenase [LDH]; K59.00 Constipation, unspecified; M19.90 Unspecified osteoarthritis, unspecified site; K57.90 Diverticulosis of intestine, part unspecified, without perforation or abscess without bleeding; E87.6 Hypokalemia; E83.39 Other disorders of phosphorus metabolism
CPT/HCPCS: 36415; 71045; 76705; 80048; 80053; 81001; 82150; 82948; 83036; 83690; 83735; 83880; 84100; 84439; 84443; 84484; 85025; 85610; 85730; 86704; 86706; 86708; 86709; 86803; 87045; 87070; 87081; 87340; 87804; 92610; 96360; 97110; 97112; 97116; 97161-GP; 97530; 99285; J1644; J2543; J7030; J7060; Q0092